=== PATIENT | male | born 1975 | race Hispanic/Latino ===

== ENCOUNTER 2017-08-08 10:42 | Emergency (ER) | payer OTHER, SELFPAY ==
[2017-08-08 10:43] VITALS: BP 133/88; PULSE 86; RESP 16; TEMP 36.7; O2SAT 97; BMI 36.9
[2017-08-08] MEDS: Loperamide 2 MG Capsule 4 MG PO (11:25)
[2017-08-08] MEDS: 0.9% Normal Saline 1,000 ML 1000 ML IV (11:25)
[2017-08-08 11:33] LABS: Absolute Neutrophil Count 4.3 X10^3/uL (2.0-7.7); Basophil# 0.01 X10^3/uL; Basophil% 0.1 % (0-1); Eosinophil# 0.14 X10^3/uL; Hematocrit 49.7 % (40-54); Hemoglobin 16.5 g/dl (13.0-16.5); Lymphocyte % 21.4 % (19-41); Mean Corp Hgb Conc 33.2 g/gl (32-36); Mean Corpuscular Hgb 30.3 pg (27.0-32.0); Mean Corpuscular Volume 91.2 fL (80-94); Mean Platelet Vol. 10.6 fl (6.2-12.0); Monocyte# 0.96 X10^3/uL; Monocyte% 13.7 % (0-10); Neutrophil % 61.4 % (47-70); Platelet Count 214 K/mm3 (150-450); RBC Distribution Width CV 12.7 % (11.6-14.6); RBC Distribution Width SD 42.3 fl (35.1-43.9); Red Blood Count 5.45 M/mm3 (4.6-6.2)
[2017-08-08 11:34] LABS: POSITIVE COUNT NO; POSITIVE DIFFERENTIAL NO; POSITIVE MORPHOLOGY NO
[2017-08-08 11:47] LABS: ALB/GLOB Ratio 0.9 RATIO (0.9-2.4); AST(SGOT) 18 U/L (15-37); Alanine Aminotransfer ALT/SGPT 62 U/L (16-61); Albumin, Serum 3.6 g/dL (3.2-5.0); Alkaline Phosphatase 113 U/L (45-117); Anion Gap 8 (5-15); BUN 17 mg/dL (7-18); BUN/Creat Ratio 19.1 RATIO (10-20); Calcium,Total 8.5 mg/dL (8.5-10.1); Chloride 103 mmol/L (98-107); Creatinine, Serum 0.89 mg/dL (0.70-1.30); EST Glomerular Filtration Rate 98 mL/min (>60); Est Glom Filt Rate - Afr Amer 119 mL/min (>60); Estimated Creatinine Clearance 99.03 ml/min; Glucose 85 mg/dL (74-106); Potassium 3.3 mmol/L (3.5-5.1); Protein, Total 7.6 g/dL (6.4-8.2); Sodium Level 139 mmol/L (136-145)
[2017-08-08 12:00] LABS: Lactic Acid 0.8 mmol/L (0.4-2.0)
--- NOTE | 2017-08-08 12:38 | ED.VISSUMM ---
- ER Visit Summary Date of Service: 08/08/17 Chief Complaint: [Abdominal pain and diarrhea] History of Present Illness: The patient is a 42 M [presents to the emergency department with complaint of abdominal discomfort for about a week. Patient is visiting here from [facility] as he and his family will be moving to the area soon. Last week patient had blood work in his doctor's office as well as a gallbladder ultrasound that showed gallstones and sludge. Patient has been complaining of some abdominal discomfort after eating spicy or greasy foods about half an hour later. The main reason the patient is here today is not for pain but for the fact that he has had diarrhea over the last 24 hours. Patient has had frequent watery stools every 20-30 minutes. Patient's had nausea but no vomiting. Patient denies any documented fever but subjectively has felt hot. Patient denies eating any unusual or undercooked foods. Patient was in [place] a month and a half ago. Patient denies recent antibiotic usage. Patient denies blood in his stool or black tarry stool.] Physical Examination: [HEENT-PERRLA, EOMI. Cranial nerves II through XII grossly intact. TMs clear. Mucous membranes moist. No adenopathy. Cardiovascular-regular rate and rhythm without murmur or ectopy Lungs-clear to auscultation, chest wall stable without crepitus or subcu emphysema Abdomen-normoactive bowel sounds, soft. Patient has mild discomfort in the right upper quadrant that he rates a 1 out of 10 on palpation. Negative Torres sign. No rebound, rigidity, or perineal signs. Extremities-intact ?4, normal range of motion, normal pulses, atraumatic] Test Results: [CBC with differential obtained showed a white count of 7.0, hemoglobin 16, hematocrit 50, platelets 214. Chemistries unremarkable other than a slightly depressed potassium at 3.3. Lactate was normal 0.8. Liver enzymes were normal.] Emergency Department Course and Treatment: [I ordered stool for C. difficile, ova parasites, and enteric pathogens. Patient received a liter normal same fluid bolus here as well as 40 mEq of potassium chloride p.o. as well as Imodium.] Treatment Plan: [Patient will given follow-up referral with primary care physician visitor services information assistant for no doc. Patient advised use Imodium for the diarrhea. I suspect patient likely has a viral gastroenteritis and do not feel his symptoms are related to his gallbladder. Patient did feel much improved after fluids here and Imodium.] Disposition: [Discharged home in stable condition] Impression: [Diarrhea-suspect viral gastroenteritis Abdominal pain] This note was generated with [employer] dictation software. It may contain incorrect words, spelling, and punctuation that were not noted in review of the chart prior to signing ED Disposition - Plan for ED Patient: Chief Complaint: Abd Pain Referrals: [facility] Doctor,Out of [Primary Care Provider] -
--- NOTE | 2017-08-08 12:42 | ED.DCSUM_ITS ---
- ER Visit Summary Date of Service: 08/08/17 Chief Complaint: [Abdominal pain and diarrhea] History of Present Illness: The patient is a 42 M [presents to the emergency department with complaint of abdominal discomfort for about a week. Patient is visiting here from [facility] as he and his family will be moving to the area soon. Last week patient had blood work in his doctor's office as well as a gallbladder ultrasound that showed gallstones and sludge. Patient has been complaining of some abdominal discomfort after eating spicy or greasy foods about half an hour later. The main reason the patient is here today is not for pain but for the fact that he has had diarrhea over the last 24 hours. Patient has had frequent watery stools every 20-30 minutes. Patient's had nausea but no vomiting. Patient denies any documented fever but subjectively has felt hot. Patient denies eating any unusual or undercooked foods. Patient was in [place] a month and a half ago. Patient denies recent antibiotic usage. Patient denies blood in his stool or black tarry stool.] Physical Examination: [HEENT-PERRLA, EOMI. Cranial nerves II through XII grossly intact. TMs clear. Mucous membranes moist. No adenopathy. Cardiovascular-regular rate and rhythm without murmur or ectopy Lungs-clear to auscultation, chest wall stable without crepitus or subcu emphysema Abdomen-normoactive bowel sounds, soft. Patient has mild discomfort in the right upper quadrant that he rates a 1 out of 10 on palpation. Negative Torres sign. No rebound, rigidity, or perineal signs. Extremities-intact ?4, normal range of motion, normal pulses, atraumatic] Test Results: [CBC with differential obtained showed a white count of 7.0, hemoglobin 16, hematocrit 50, platelets 214. Chemistries unremarkable other than a slightly depressed potassium at 3.3. Lactate was normal 0.8. Liver enzymes were normal.] Emergency Department Course and Treatment: [I ordered stool for C. difficile, ova parasites, and enteric pathogens. Patient received a liter normal same fluid bolus here as well as 40 mEq of potassium chloride p.o. as well as Imodium.] Treatment Plan: [Patient will given follow-up referral with primary care physician sap functional analyst for no doc. Patient advised use Imodium for the diarrhea. I suspect patient likely has a viral gastroenteritis and do not feel his symptoms are related to his gallbladder. Patient did feel much improved after fluids here and Imodium.] Disposition: [Discharged home in stable condition] Impression: [Diarrhea-suspect viral gastroenteritis Abdominal pain] This note was generated with [employer] dictation software. It may contain incorrect words, spelling, and punctuation that were not noted in review of the chart prior to signing ED Disposition - Plan for ED Patient: Chief Complaint: Abd Pain Referrals: [facility] Doctor,Out of [Primary Care Provider] -
--- NOTE | 2017-08-08 12:42 | ED.DEP ---
ED Disposition - Plan for ED Patient: Chief Complaint: Abd Pain Instructions: ED Abdominal Pain Unkn Cause, ED Gastroenteritis Report Pend Referrals: [facility] [address] Doctor,Out of [Primary Care Provider] - Melvin Doan MD [STAFF PHYSICIAN] - 3-5 Days
[2017-08-08 13:08] VITALS: BP 150/101; PULSE 91; RESP 18; O2SAT 98
--- NOTE | 2017-08-08 23:58 | NURSING ---
LAB CALLED WITH POSITIVE ENTERIC STOOL RESULTS. STOOL POSITIVE FOR [place]OVIRUS. SPOKE WITH DR. CARBONE. NO TREATMENT FOR THIS. WILL CALL PATIENT IN THE MORNING AND NOTIFY THE PATIENT OF THE RESULTS AND PLAN OF CARE.
--- NOTE | 2017-08-09 07:12 | ED.RN ---
ATTEMPTED TO MAKE CONTACT WITH PATIENT AT THIS TIME TO DISCUSS TEST RESULTS. PHONE NUMBER DOES NOT WORK. DUE TO NO TREATMENT REQUIRED NO FURTHER ATTEMPTS WILL BE MADE AT THIS TIME
== END 2017-08-08 13:14 | disposition home or self-care (01) ==
PROVIDERS: Emergency Provider Emergency Medicine
DX: R19.7 Diarrhea, unspecified (principal); R10.9 Unspecified abdominal pain; I10 Essential (primary) hypertension
CPT/HCPCS: 80053; 83605; 85025; 87493; 87506; 99282; J7030